=== PATIENT | male | born 1995 | race Caucasian/White ===

== ENCOUNTER 2017-06-10 15:27 | Emergency (ER) | payer OTHER ==
[~2017-06-10] VITALS: Ht 180.3 cm; Wt 72.6 kg
[~2017-06-10 15:27] MED LIST: AUGMENTIN PO; BACTRIM DS TABL1 TA1 PO; MOTRIN600 M1 PO; ZITHROMAX1 G/PKT PO
== END 2017-06-10 18:35 | disposition home or self-care (01) ==
LOC: CED 15:27 → CFTX 15:27
DX: T15.01XA Foreign body in cornea, right eye, initial encounter (principal); F17.200 Nicotine dependence, unspecified, uncomplicated; I48.91 Unspecified atrial fibrillation; I25.2 Old myocardial infarction
CPT/HCPCS: 65220; 90715; 99283